=== PATIENT | male | born 1945 | race Caucasian/White ===

== ENCOUNTER 2017-12-15 22:53 | Inpatient (IN) | payer OTHER, MEDICARE ==
[~2017-12-15] VITALS: Ht 188 cm; Wt 65.1 kg
[2017-12-15] MEDS ORDERED: ASPI81CH PO (23:14)
[2017-12-15] MEDS ORDERED: ATEN25 PO (23:15)
[2017-12-15] MEDS ORDERED: ATORVASTATIN CA40 MG PO (23:16)
[2017-12-15] MEDS ORDERED: KETO120T TOP (23:16)
[2017-12-15] MEDS ORDERED: MIRT30 PO (23:16)
[2017-12-15] MEDS ORDERED: DOCU100 PO (23:16)
[2017-12-15] MEDS ORDERED: MOME220I INH (23:17)
[2017-12-15] MEDS ORDERED: OLAN10 (23:17)
[2017-12-15] MEDS ORDERED: OLAN10 PO (23:17)
[2017-12-15] MEDS ORDERED: STRIVERDI RESPIM4 GM (23:18)
[2017-12-15] MEDS ORDERED: TAMS.4ER PO (23:18)
[2017-12-16 01:02] LABS: Base Excess Venous 22.4 mmol/L; Bicarbonate Venous 42.2 mmol/L (24.0-30.0); PCO2 Venous 82.2 mmHg (38-42); PO2 Venous 112 mmHg (38-42); pH Blood Venous 7.37 (7.34-7.37)
[2017-12-16 01:18] LABS: Troponin I <0.015 ng/mL (0.000-0.040)
[2017-12-16 01:19] LABS: Thyroid Stimulating Hormone 0.089 uIU/mL (0.360-4.800)
[2017-12-16 06:09] LABS: Hematocrit 43.4 % (37.0-53.0); Hemoglobin 12.9 g/dL (13.5-17.5); Mean Corpuscular HGB 28.5 pg (26.0-34.0); Mean Corpuscular HGB Conc 29.7 g/dL (31.5-36.5); Mean Corpuscular Volume 96 fL (80-100); Mean Platelet Volume 9.7 fL (9.1-12.4); Platelet Count 275 K/mm3 (150-400); RDW Coefficient Variation 12.8 % (11.7-14.2); RDW Standard Deviation 45.2 fL (35.1-46.3); Red Blood Cell Count 4.53 M/mm3 (4.30-5.90); White Blood Cell Count 5.05 K/mm3 (4.00-11.30)
[2017-12-16 06:31] LABS: Anion Gap 5 mmol/L (6-16); Blood Urea Nitrogen 21 mg/dL (8-24); Bun/Creatinine Ratio 37.8 (12.0-20.0); CO2, Blood 42 mmol/L (21-32); Calcium, Blood 9.6 mg/dL (8.5-10.1); Chloride, Blood 90 mmol/L (98-108); Creatinine, Blood 0.56 mg/dL (0.60-1.20); Glomerular Filtration Rate >60 (60-); Glucose, Blood 131 mg/dL (70-99); Potassium, Blood 4.2 mmol/L (3.5-5.5); Sodium, Blood 137 mmol/L (136-145); Troponin I <0.015 ng/mL (0.000-0.040)
[2017-12-16 08:16] LABS: Source, Urine Catheter
[2017-12-16 08:20] LABS: U Amphetamine Screen Not Detected; U Barbituate Screen Not Detected; U Benzodiazapine Screen Not Detected; U Buprenorphine Screen Not Detected; U Cannabinoids Screen Not Detected; U Cocaine Screen Not Detected; U Methadone Screen Not Detected; U Methamphetamine Screen Not Detected; U Opiates Screen Not Detected; U Oxycodone Screen Not Detected; U Phencyclidine Screen Not Detected
[2017-12-16 08:21] LABS: U Propoxyphene Screen Not Detected
[2017-12-16 08:28] LABS: Appearance, Urine Clear (Clear); Bilirubin, Urine Neg (Neg); Blood, Urine Neg (Neg); Color, Urine Yellow (P-Yellow); Glucose Qualitative, Urine Neg (Neg); Ketones, Urine Neg (Neg); Leukocyte Esterase, Urine Neg (Neg); Nitrite, Urine Neg (Neg); Protein, Urine Neg (Neg); Specific Gravity, Urine 1.015 (1.003-1.022); Urobilinogen, Urine NORM (Normal)
[2017-12-16] MEDS ORDERED: STRIVERDI RESPIM4 GM INH (15:10)
[2017-12-16] MEDS ORDERED: ALBU3IS INH (15:11)
[2017-12-17 04:47] LABS: PCO2 Arterial 58.1 mmHg (35-45); PO2 Arterial 43 mmHg (80-100); pH Blood Arterial 7.47 (7.35-7.45)
[2017-12-17 05:31] LABS: BASOPHILS ABSOLUTE AUTO 0.01 K/mm3 (0.00-0.23); BASOPHILS PERCENT AUTO 0 % (0-2); EOSINOPHILS PERCENT AUTO 0 % (0-6); Hematocrit 44.4 % (37.0-53.0); Hemoglobin 13.4 g/dL (13.5-17.5); IMMATURE GRAN ABSOLUTE AUTO 0.04 K/mm3 (0.00-0.10); IMMATURE GRAN PERCENT AUTO 1 % (0-1); LYMPHOCYTES ABSOLUTE AUTO 0.43 K/mm3 (0.84-5.20); LYMPHOCYTES PERCENT AUTO 5 % (21-46); MONOCYTES ABSOLUTE AUTO 0.15 K/mm3 (0.16-1.47); MONOCYTES PERCENT AUTO 2 % (4-13); Mean Corpuscular HGB 28.2 pg (26.0-34.0); Mean Corpuscular HGB Conc 30.2 g/dL (31.5-36.5); Mean Platelet Volume 9.9 fL (9.1-12.4); NEUTROPHILS ABSOLUTE AUTO 7.87 K/mm3 (1.96-9.15); NEUTROPHILS PERCENT AUTO 93 % (41-73); Platelet Count 277 K/mm3 (150-400); RDW Coefficient Variation 12.9 % (11.7-14.2); RDW Standard Deviation 44.5 fL (35.1-46.3); Red Blood Cell Count 4.76 M/mm3 (4.30-5.90)
[2017-12-17 05:35] LABS: Mean Corpuscular Volume 93 fL (80-100)
[2017-12-18 05:56] LABS: Anion Gap 5 mmol/L (6-16); Blood Urea Nitrogen 30 mg/dL (8-24); Bun/Creatinine Ratio 42.4 (12.0-20.0); CO2, Blood 40 mmol/L (21-32); Calcium, Blood 9.1 mg/dL (8.5-10.1); Chloride, Blood 96 mmol/L (98-108); Creatinine, Blood 0.71 mg/dL (0.60-1.20); Glomerular Filtration Rate >60 (60-); Glucose, Blood 132 mg/dL (70-99); Phosphorus, Blood 4.5 mg/dL (2.5-4.9); Sodium, Blood 141 mmol/L (136-145)
[2017-12-19 05:05] LABS: Hematocrit 44.6 % (37.0-53.0); Hemoglobin 13.2 g/dL (13.5-17.5); Mean Corpuscular HGB 27.9 pg (26.0-34.0); Mean Corpuscular HGB Conc 29.6 g/dL (31.5-36.5); Mean Corpuscular Volume 94 fL (80-100); Mean Platelet Volume 10.2 fL (9.1-12.4); Platelet Count 275 K/mm3 (150-400); RDW Coefficient Variation 12.9 % (11.7-14.2); RDW Standard Deviation 45.3 fL (35.1-46.3); Red Blood Cell Count 4.73 M/mm3 (4.30-5.90); White Blood Cell Count 8.76 K/mm3 (4.00-11.30)
[2017-12-19 05:23] LABS: Anion Gap 4 mmol/L (6-16); Blood Urea Nitrogen 36 mg/dL (8-24); Bun/Creatinine Ratio 49.5 (12.0-20.0); CO2, Blood 39 mmol/L (21-32); Calcium, Blood 9.2 mg/dL (8.5-10.1); Chloride, Blood 95 mmol/L (98-108); Creatinine, Blood 0.73 mg/dL (0.60-1.20); Glomerular Filtration Rate >60 (60-); Glucose, Blood 105 mg/dL (70-99); Potassium, Blood 4.2 mmol/L (3.5-5.5); Sodium, Blood 138 mmol/L (136-145)
[2017-12-22] MEDS ORDERED: BUDE.25 NEB (11:40)
[2017-12-22] MEDS ORDERED: DELTASONE20 MG PO (11:40)
== END 2017-12-22 13:50 | disposition home health service (06) | DRG 189 ==
LOC: ER 22:53 → MEDS 12-16 00:31 → PCU 12-16 00:31 → MEDS 12-16 22:13 → ENPENDDIS 12-18 11:12 → EDPENDDIS 12-18 11:12 → MEDS 12-18 13:05
PROVIDERS: Emergency Medicine; Internal Medicine; Nurse Practitioner Acute Care
DX: J96.21 Acute and chronic respiratory failure with hypoxia (principal); G93.41 Metabolic encephalopathy; J44.1 Chronic obstructive pulmonary disease with (acute) exacerbation; R65.10 Systemic inflammatory response syndrome (SIRS) of non-infectious origin without acute organ dysfunction; J98.11 Atelectasis; R45.851 Suicidal ideations; Z87.891 Personal history of nicotine dependence; Z99.81 Dependence on supplemental oxygen; F20.9 Schizophrenia, unspecified; E11.9 Type 2 diabetes mellitus without complications; E78.5 Hyperlipidemia, unspecified; I10 Essential (primary) hypertension; I25.10 Atherosclerotic heart disease of native coronary artery without angina pectoris; N40.1 Benign prostatic hyperplasia with lower urinary tract symptoms; R33.9 Retention of urine, unspecified; F32.9 Major depressive disorder, single episode, unspecified; Z79.82 Long term (current) use of aspirin; Z90.81 Acquired absence of spleen
CPT/HCPCS: 36415; 36600; 70450; 80048; 80069; 81003; 82803; 82947; 83880; 84145; 84443; 84484; 85025; 85027; 93005; 93010; 94640; 94760; 97110; 97163; 97165; 97530; 99285; G0515; G8978; G8979; G8987; G8988; G8989; J1650; J2930

== ENCOUNTER 2017-12-29 11:31 | Emergency (ER) | payer MEDICARE ==
[~2017-12-29] VITALS: Ht 185.4 cm; Wt 77.1 kg
[~2017-12-29 11:31] MED LIST: ALBU3IS INH; ASPI81CH PO; ATEN25 PO; ATORVASTATIN CA40 MG PO; BUDE.25 NEB; DELTASONE20 MG PO; DOCU100 PO; KETO120T TOP; MIRT30 PO; MOME220I INH; OLAN10; OLAN10 PO; STRIVERDI RESPIM4 GM; STRIVERDI RESPIM4 GM INH; TAMS.4ER PO
[2017-12-29 12:50] LABS: Calcium, Ionized (POC) 1.21 mmol/L (1.10-1.46); Chloride (POC) 92 mmol/L (98-108); Creatinine (POC) 0.8 mg/dL (0.8-1.3); Glucose (ISTAT POC) 131 mg/dL (70-99); Potassium (POC) 4.3 mmol/L (3.5-5.5); Sodium (POC) 136 mmol/L (135-148); Total CO2 (POC) 33 mmol/L (21-32)
== END 2017-12-29 14:50 | disposition home or self-care (01) ==
LOC: ER 11:31
PROVIDERS: Emergency Medicine
DX: S06.9X9A Unspecified intracranial injury with loss of consciousness of unspecified duration, initial encounter (principal); F20.9 Schizophrenia, unspecified; R53.1 Weakness; Z91.012 Allergy to eggs; Z91.018 Allergy to other foods; Z79.899 Other long term (current) drug therapy; Z79.82 Long term (current) use of aspirin; Z87.891 Personal history of nicotine dependence; W06.XXXA Fall from bed, initial encounter
CPT/HCPCS: 36415; 70450; 80047; 85014; 93005; 93010; 99285-25

== ENCOUNTER 2018-01-23 08:24 | Inpatient (IN) | payer MEDICARE ==
[~2018-01-23] VITALS: Ht 188 cm; Wt 65.1 kg
[~2018-01-23 08:24] MED LIST changes: +AMOCLA500 PO; +CEPH500 PO; +NITR.4SL SL
[2018-01-23 08:58] LABS: BASOPHILS ABSOLUTE AUTO 0.07 K/mm3 (0.00-0.23); BASOPHILS PERCENT AUTO 0 % (0-2); EOSINOPHILS ABSOLUTE AUTO 0.14 K/mm3 (0.00-0.68); EOSINOPHILS PERCENT AUTO 1 % (0-6); Hematocrit 44.4 % (37.0-53.0); Hemoglobin 13.2 g/dL (13.5-17.5); IMMATURE GRAN ABSOLUTE AUTO 0.05 K/mm3 (0.00-0.10); IMMATURE GRAN PERCENT AUTO 0 % (0-1); LYMPHOCYTES ABSOLUTE AUTO 0.57 K/mm3 (0.84-5.20); LYMPHOCYTES PERCENT AUTO 4 % (21-46); MONOCYTES ABSOLUTE AUTO 0.67 K/mm3 (0.16-1.47); MONOCYTES PERCENT AUTO 4 % (4-13); Mean Corpuscular HGB 27.9 pg (26.0-34.0); Mean Corpuscular HGB Conc 29.7 g/dL (31.5-36.5); Mean Corpuscular Volume 94 fL (80-100); Mean Platelet Volume 9.5 fL (9.1-12.4); NEUTROPHILS PERCENT AUTO 90 % (41-73); Platelet Count 414 K/mm3 (150-400); RDW Coefficient Variation 13.3 % (11.7-14.2); RDW Standard Deviation 45.7 fL (35.1-46.3); Red Blood Cell Count 4.73 M/mm3 (4.30-5.90)
[2018-01-23 09:15] LABS: Alanine Aminotransfer (ALT/SGP 20 U/L (12-78); Albumin, Blood 2.7 g/dL (3.4-5.0); Albumin/Globulin Ratio 0.7 (0.8-1.8); Alk Phos 143 U/L (50-136); Anion Gap 9 mmol/L (6-16); Aspartate Aminotrans (AST/SGOT 20 U/L (12-37); Bilirubin, Total 0.4 mg/dL (0.1-1.0); Blood Urea Nitrogen 19 mg/dL (8-24); Bun/Creatinine Ratio 19.8 (12.0-20.0); CO2, Blood 28 mmol/L (21-32); Chloride, Blood 101 mmol/L (98-108); Creatinine, Blood 0.96 mg/dL (0.60-1.20); Globulin, Blood 3.9 g/dL (2.2-4.0); Glomerular Filtration Rate >60 (60-); Glucose, Blood 194 mg/dL (70-99); Potassium, Blood 4.2 mmol/L (3.5-5.5); Sodium, Blood 138 mmol/L (136-145); Total Protein, Blood 6.6 g/dL (6.4-8.2); Troponin I <0.015 ng/mL (0.000-0.040)
[2018-01-23 10:33] LABS: Source, Urine Catheter
[2018-01-23 10:37] LABS: Bilirubin, Urine Neg (Neg); Blood, Urine 5+ (Neg); Glucose Qualitative, Urine Neg (Neg); Ketones, Urine Neg (Neg); Leukocyte Esterase, Urine 3+ (Neg); Nitrite, Urine Pos (Neg); Protein, Urine 2+ (Neg); Urobilinogen, Urine NORM (Normal)
[2018-01-23 10:44] LABS: Appearance, Urine Cloudy (Clear); Color, Urine Yellow (P-Yellow)
[2018-01-23 10:46] LABS: White Blood Cells, Urine 25-50 /hpf (0-5)
[2018-01-23 10:47] LABS: Bacteria Mod /hpf; Granular Casts 0-2 /lpf (0); Hyaline Casts 0-2 /lpf (0-2); Mucus Light (0-Heavy); Spermatozoa Rare /hpf; Squamous Epithelial Cells Few /hpf (Few)
[2018-01-23] MEDS ORDERED: IBUP400 PO (15:10)
[2018-01-24 04:44] LABS: Hematocrit 37.4 % (37.0-53.0); Hemoglobin 11.2 g/dL (13.5-17.5); Mean Corpuscular HGB 28.4 pg (26.0-34.0); Mean Corpuscular HGB Conc 29.9 g/dL (31.5-36.5); Mean Corpuscular Volume 95 fL (80-100); Mean Platelet Volume 9.9 fL (9.1-12.4); Platelet Count 363 K/mm3 (150-400); RDW Coefficient Variation 13.5 % (11.7-14.2); RDW Standard Deviation 46.7 fL (35.1-46.3); Red Blood Cell Count 3.94 M/mm3 (4.30-5.90); White Blood Cell Count 9.57 K/mm3 (4.00-11.30)
[2018-01-24 05:01] LABS: Anion Gap 2 mmol/L (6-16); Blood Urea Nitrogen 30 mg/dL (8-24); Bun/Creatinine Ratio 39.3 (12.0-20.0); CO2, Blood 36 mmol/L (21-32); Calcium, Blood 8.2 mg/dL (8.5-10.1); Chloride, Blood 102 mmol/L (98-108); Creatinine, Blood 0.76 mg/dL (0.60-1.20); Glomerular Filtration Rate >60 (60-); Glucose, Blood 104 mg/dL (70-99); Potassium, Blood 4.4 mmol/L (3.5-5.5); Sodium, Blood 140 mmol/L (136-145)
[2018-01-25 04:14] LABS: Anion Gap 2 mmol/L (6-16); Blood Urea Nitrogen 25 mg/dL (8-24); Bun/Creatinine Ratio 35.9 (12.0-20.0); CO2, Blood 38 mmol/L (21-32); Calcium, Blood 8.6 mg/dL (8.5-10.1); Chloride, Blood 100 mmol/L (98-108); Glomerular Filtration Rate >60 (60-); Glucose, Blood 107 mg/dL (70-99); Potassium, Blood 4.3 mmol/L (3.5-5.5); Sodium, Blood 140 mmol/L (136-145)
[2018-01-26 05:38] LABS: Anion Gap 3 mmol/L (6-16); Blood Urea Nitrogen 21 mg/dL (8-24); Bun/Creatinine Ratio 34.8 (12.0-20.0); CO2, Blood 39 mmol/L (21-32); Chloride, Blood 98 mmol/L (98-108); Glomerular Filtration Rate >60 (60-); Glucose, Blood 105 mg/dL (70-99); Potassium, Blood 4.3 mmol/L (3.5-5.5); Sodium, Blood 140 mmol/L (136-145)
[2018-01-27] MEDS ORDERED: CEFU500T30 PO (14:23)
[2018-01-27] MEDS ORDERED: ACIDOPHILUS1 EACH PO (14:24)
== END 2018-01-27 15:49 | disposition home health service (06) | DRG 698 ==
LOC: ER 08:24 → MEDS 11:36 → ENPENDDIS 01-27 14:00 → MEDS 01-27 15:49
PROVIDERS: Internal Medicine; Physician Assistant
DX: T83.511A Infection and inflammatory reaction due to indwelling urethral catheter, initial encounter (principal); A41.89 Other specified sepsis; J96.11 Chronic respiratory failure with hypoxia; N13.8 Other obstructive and reflux uropathy; N39.0 Urinary tract infection, site not specified; J44.9 Chronic obstructive pulmonary disease, unspecified; F20.9 Schizophrenia, unspecified; N40.1 Benign prostatic hyperplasia with lower urinary tract symptoms; I25.10 Atherosclerotic heart disease of native coronary artery without angina pectoris; E78.5 Hyperlipidemia, unspecified; I10 Essential (primary) hypertension; R32 Unspecified urinary incontinence; W18.39XA Other fall on same level, initial encounter; Y93.01 Activity, walking, marching and hiking; Y92.199 Unspecified place in other specified residential institution as the place of occurrence of the external cause; R26.9 Unspecified abnormalities of gait and mobility; Z96.0 Presence of urogenital implants; R29.6 Repeated falls; F43.10 Post-traumatic stress disorder, unspecified; I12.9 Hypertensive chronic kidney disease with stage 1 through stage 4 chronic kidney disease, or unspecified chronic kidney disease; N18.9 Chronic kidney disease, unspecified; Z79.82 Long term (current) use of aspirin; Z79.899 Other long term (current) drug therapy; Z85.820 Personal history of malignant melanoma of skin; F32.9 Major depressive disorder, single episode, unspecified; Z87.891 Personal history of nicotine dependence; Z91.81 History of falling; Z74.09 Other reduced mobility
CPT/HCPCS: 36415; 71046; 80048; 80053; 81001; 82947; 83036; 83605; 84484; 85025; 85027; 87040; 87077; 87086; 87186; 93005; 93010; 94640; 94664; 94667; 94760; 96361; 96365; 97110; 97116; 97162; 97166; 97530; 98960; 99285-25; G8978; G8979; G8987; G8988; J0696; J1650; J7030

== ENCOUNTER 2018-01-28 12:36 | Emergency (ER) | payer MEDICARE ==
[~2018-01-28] VITALS: Ht 188 cm; Wt 68.0 kg
[~2018-01-28 12:36] MED LIST changes: +ACIDOPHILUS1 EACH PO; +CEFU500T30 PO; +IBUP400 PO
[2018-01-28 15:15] LABS: Calcium, Ionized (POC) 1.11 mmol/L (1.10-1.46); Chloride (POC) 97 mmol/L (98-108); Creatinine (POC) 0.6 mg/dL (0.8-1.3); Glucose (ISTAT POC) 95 mg/dL (70-99); Hemoglobin (POC) 10.2 g/dL (13.5-17.5); Potassium (POC) 3.7 mmol/L (3.5-5.5); Sodium (POC) 142 mmol/L (135-148); Total CO2 (POC) 37 mmol/L (21-32)
[2018-01-28 15:16] LABS: International Normalized Ratio 0.97
== END 2018-01-28 18:44 | disposition home or self-care (01) ==
LOC: ER 12:36
PROVIDERS: Emergency Medicine
DX: S09.90XA Unspecified injury of head, initial encounter (principal); J44.9 Chronic obstructive pulmonary disease, unspecified; E78.00 Pure hypercholesterolemia, unspecified; Z91.012 Allergy to eggs; Z91.018 Allergy to other foods; Z79.899 Other long term (current) drug therapy; Z79.82 Long term (current) use of aspirin; Z87.891 Personal history of nicotine dependence; W18.30XA Fall on same level, unspecified, initial encounter
CPT/HCPCS: 70450; 72100; 72125; 72170; 80047; 85014; 85610; 93005; 93010; 99285-25

== ENCOUNTER 2018-08-31 17:56 | Inpatient (IN) | payer MEDICARE ==
[~2018-08-31] VITALS: Ht 188 cm; Wt 75.8 kg
[~2018-08-31 17:56] MED LIST changes: -ASPI81CH PO; +Aspirin EC81 MG PO
[2018-08-31] MEDS ORDERED: FINA5 PO (19:04)
[2018-08-31 19:19] LABS: BASOPHILS ABSOLUTE AUTO 0.05 K/mm3 (0.00-0.23); BASOPHILS PERCENT AUTO 1 % (0-2); EOSINOPHILS ABSOLUTE AUTO 0.06 K/mm3 (0.00-0.68); EOSINOPHILS PERCENT AUTO 1 % (0-6); Hematocrit 43.8 % (37.0-53.0); Hemoglobin 12.9 g/dL (13.5-17.5); IMMATURE GRAN ABSOLUTE AUTO 0.02 K/mm3 (0.00-0.10); IMMATURE GRAN PERCENT AUTO 0 % (0-1); LYMPHOCYTES ABSOLUTE AUTO 0.61 K/mm3 (0.84-5.20); LYMPHOCYTES PERCENT AUTO 6 % (21-46); MONOCYTES ABSOLUTE AUTO 0.68 K/mm3 (0.16-1.47); MONOCYTES PERCENT AUTO 7 % (4-13); Mean Corpuscular HGB 29.3 pg (26.0-34.0); Mean Corpuscular HGB Conc 29.5 g/dL (31.5-36.5); Mean Corpuscular Volume 99 fL (80-100); Mean Platelet Volume 10.5 fL (9.1-12.4); NEUTROPHILS ABSOLUTE AUTO 8.19 K/mm3 (1.96-9.15); NEUTROPHILS PERCENT AUTO 85 % (41-73); Platelet Count 289 K/mm3 (150-400); RDW Coefficient Variation 12.3 % (11.7-14.2); RDW Standard Deviation 45.1 fL (35.1-46.3); Red Blood Cell Count 4.41 M/mm3 (4.30-5.90); White Blood Cell Count 9.61 K/mm3 (4.00-11.30)
[2018-08-31 19:30] LABS: Alanine Aminotransfer (ALT/SGP 22 U/L (12-78); Albumin, Blood 3.1 g/dL (3.4-5.0); Albumin/Globulin Ratio 0.8 (0.8-1.8); Alk Phos 124 U/L (50-136); Anion Gap 1 mmol/L (6-16); Aspartate Aminotrans (AST/SGOT 26 U/L (12-37); Bilirubin, Total 0.4 mg/dL (0.1-1.0); Blood Urea Nitrogen 20 mg/dL (8-24); CO2, Blood 43 mmol/L (21-32); Calcium, Blood 9.3 mg/dL (8.5-10.1); Chloride, Blood 95 mmol/L (98-108); Creatinine, Blood 0.56 mg/dL (0.60-1.20); Glomerular Filtration Rate >60 (60-); Glucose, Blood 147 mg/dL (70-99); Potassium, Blood 5.1 mmol/L (3.5-5.5); Sodium, Blood 139 mmol/L (136-145); Total Protein, Blood 7.1 g/dL (6.4-8.2)
--- NOTE | 2018-09-01 07:21 | NUR ---
alert but confused as to events that are happening around him, appoligized multiple times for his thoughts effecting staff, call light in reach, saline locked, room air, walking rounds completed with day staff
--- NOTE | 2018-09-01 16:27 | NUR ---
SHIFT SUMMARY THE PATIENT PRESENT THIS SHIFT COMPLAINING OF NOT SLEEPING WELL LAST NIGHT. THE PATIENT HAS VITALS WNL, A&O X3 AND HAD LUNG SOUNDS THAT CLEAR IN THE UPPER AREAS, BUT WHEEZY AT THE BASES. THE PATINET'S IV WAS REMOVED BY THE PATIENT AND A NEW IV WAS PLACED. THE PATIENT HAS BEEN VERY COOPERATIVE ALL SHIFT AND IS RESTING AT THIS TIME, WILL CONTINUE TO MONITOR.
--- NOTE | 2018-09-02 07:08 | NUR ---
alert and orintated to self, remains confused, pulled own IV and was unaware he had done it or where the blood was coming from, call light in reach, saline locked, 5L via rebreather, takes o2 off if not monitored, walking rounds completed with day staff, expressed concern about placement for pt he is incapable of careing for himself
[2018-09-02 10:50] LABS: PCO2 Arterial 65.5 mmHg (35-45); PO2 Arterial 69.5 mmHg (80-100); pH Blood Arterial 7.47 (7.35-7.45)
--- NOTE | 2018-09-02 16:27 | NUR ---
SHIFT SUMMARY THE PATIENT PRESENTED THIS MORNING WITH INSPIRATIONAL WHEEZES AND VERY DIMINISHED BASES IN HIS LUNGS, A&O TO SELF AND VITALS WNL. THE PATIENT IS FOLLOWING INSTRUCTIONS , BUT SEEMS CONFUSED AT TIMES. THE PATIENT WILL POSSIBILY BE DISCHARGED TO [facility] TOMORROW (HOME) AFTER THEY COME AND INTERVIEW THE PATIENT. THE PATIENT IS RESTING AT THIS TIME, WILL CONTINUE TO MONITOR.
--- NOTE | 2018-09-03 07:13 | NUR ---
alert at baseline, cooperative with staff, call light in reach, no IV, 4L via NC, walking rounds completed with day staff
--- NOTE | 2018-09-03 14:40 | NUR ---
CALLED [facility] OFFERED NURSING HANDOFF REPORT. THEY STATED THAT THE CRYSTALLOGRAPHY TEACHER, NANCY, FROM [facility] HAS COME AND ASSESSED THE PT IN THE HOSPITAL AND A HANDOFF REPORT WOULD NOT BE REQUIRED. PT TRANSPORT ARRANGED FOR 1500 HRS VIA [facility]. GERALD KINGSTON IS SUPERVISOR CORE SHOP/RADIOLOGY RN. NO IV ACCESS FOR THIS PATIENT. BUSINESS INTELLIGENCE ANALYST HAS GATHERED UP PERSONAL POSSESSIONS OF THIS PT.
--- NOTE | 2018-09-03 16:11 | NUR ---
DISCHARGE NOTE DISCHARGE MASTER SCHEDULER GERALD KINGSTON ARRANGED TRANSPORT VIA [facility]. PT'S PERSONAL POSSESIONS WERE GATHERED. [employer] PR[employer] FEEDER FROM [facility], CAME AND ASSESSED PT. PT WAS SENT WITH O2 VIA [facility] AT 4 LPM. NO IV ACCESS. CALLED [facility] TO GIVE REPORT BUT THEY DECLINED TO RECEIVE REPORT. [employer] PRESS FEEDER NANCY WAS PROVIDED WITH DISCHARGE PAPERS REGARDING THIS PATIENT. PT WAS ESCORTED OUT BY [facility] [employer] PR[employer] FEED[employer] VIA WHEELCHAIR.
[2018-09-14] MEDS ORDERED: COMBIVENT RESPIM4 GM INH (11:42)
[2018-09-14] MEDS ORDERED: FINA5 PO (11:42)
[2018-09-14] MEDS ORDERED: MIRT30 PO (11:42)
[2018-09-14] MEDS ORDERED: PRED5 PO (11:43)
[2018-09-14] MEDS ORDERED: OLAN10 PO (11:43)
[2018-09-14] MEDS ORDERED: STRIVERDI RESPIM4 GM IH (11:43)
[2018-09-14] MEDS ORDERED: TAMS.4ER PO (11:43)
[2018-09-14] MEDS ORDERED: ACET325 PO (13:13)
[2018-09-14] MEDS ORDERED: ALBU90OI INH (13:14)
[2018-09-14] MEDS ORDERED: GUAI600T33 PO (13:16)
[2018-09-16] MEDS ORDERED: PRED20 PO (11:54)
== END 2018-09-03 15:12 | disposition home or self-care (01) | DRG 189 ==
LOC: ER 17:56 → MEDS 21:59 → ENPENDDIS 09-03 08:30 → MEDS 09-03 15:12
PROVIDERS: Emergency Medicine; Internal Medicine; ADMIT Hospitalist
DX: J96.21 Acute and chronic respiratory failure with hypoxia (principal); E43 Unspecified severe protein-calorie malnutrition; J44.1 Chronic obstructive pulmonary disease with (acute) exacerbation; C85.90 Non-Hodgkin lymphoma, unspecified, unspecified site; E87.2 Acidosis; I25.10 Atherosclerotic heart disease of native coronary artery without angina pectoris; J96.22 Acute and chronic respiratory failure with hypercapnia; F43.10 Post-traumatic stress disorder, unspecified; E11.9 Type 2 diabetes mellitus without complications; F20.9 Schizophrenia, unspecified; E78.5 Hyperlipidemia, unspecified; I10 Essential (primary) hypertension; N40.1 Benign prostatic hyperplasia with lower urinary tract symptoms; Z99.81 Dependence on supplemental oxygen; Z87.891 Personal history of nicotine dependence; Z68.22 Body mass index [BMI] 22.0-22.9, adult
CPT/HCPCS: 36415; 36600; 71046; 80053; 82803; 84145; 85025; 93005; 93010; 94640; 94664; 94667; 94760; 96374; 98960; 99285-25; 99407; J1650; J2930